=== PATIENT | female | born 1980 | race Caucasian/White ===

== ENCOUNTER 2018-02-13 21:09 | Emergency (ER) | payer OTHER ==
[2018-02-13 21:21] VITALS: BP 143/89
--- NOTE | 2018-02-13 21:28 | UC ---
Skin Complaint HPI - HPI Summary HPI Summary: This is mare Spencer documenting for attending Tanvir Guzman MD. This patient is a 37 year old F presenting to [facility] with a chief complaint of insect bite on the left sargent that occurred yesterday at a picnic. The patient rates the pain 4/10 in severity. Symptoms aggravated by nothing. Symptoms alleviated by nothing. Patient reports pruritic and painful bump on left sargent. - History of Current Complaint Chief Complaint: UCLowerExtremity Time Seen by Provider: 02/13/18 21:23 Stated Complaint: POSS BUG BITE ON LEG,INFLAMED Hx Obtained From: Patient Hx Last Menstrual Period: 02/04/18 ?: No Onset/Duration: Sudden Onset, Lasting Days, Still Present Skin Exposure Onset/Duration: Days Ago Timing: Constant Onset Severity: Moderate Current Severity: Moderate Pain Intensity: 4 Pain Scale Used: 0-10 Numeric Location: Other - Left leg Character: Pruritus, Painful Aggravating Factor(s): Nothing Alleviating Factor(s): Nothing Related History: Insect Bite/Sting - Allergy/Home Medications Allergies/Adverse Reactions: Allergies Allergy/AdvReac Type Severity Reaction Status Date / Time Sulfa (Sulfonamide Allergy Severe Anaphylatic Verified 02/13/18 21:22 Antibiotics) Shock Penicillins Allergy RASH, Verified 02/13/18 21:22 SWELLING Review of Systems Constitutional: Other - Negative fever Skin: Other - Positive insect bite on left leg and painful and pruritic rash All Other Systems Reviewed And Are Negative: Yes PMH/Surg Hx/FS Hx/Imm Hx Previously Healthy: Yes Endocrine History: Other Other Endocrine History: Negative diabetes Cardiovascular History: Other Other Cardiovascular History: Negative HTN - Surgical History Surgical History: Yes Surgery Procedure, Year, and Place: C-SECTIONS X2 - Family History Known Family History: Negative: Diabetes - Social History Occupation: Employed Full-time Lives: With Family Alcohol Use: Occasionally Substance Use Type: None Smoking Status (MU): Never Smoked Tobacco - Immunization History Most Recent Tetanus Shot: UNKNOWN Physical Exam - Summary Physical Exam Summary: VITAL SIGNS: Reviewed. GENERAL: Patient is a well-developed and nourished female who is lying comfortable in the stretcher. Patient is not in any acute respiratory distress. HEAD AND FACE: Normocephalic EYES: PERRLA, EOMI x 2. EARS: Hearing grossly intact. MOUTH: Oropharynx within normal limits. NECK: Supple, trachea is midline, no adenopathy, no JVD, no carotid bruit. CHEST: Symmetric, no tenderness at palpation LUNGS: Clear to auscultation bilaterally. No wheezing or crackles. CVS: Regular rate and rhythm, S1 and S2 present, no murmurs or gallops appreciated. ABDOMEN: Soft, non-tender. Bowel sounds are normal. No abdominal abnormal pulsations. EXTREMITIES: Full ROM in all major joints, no edema, no cyanosis or clubbing. NEURO: Alert and oriented x 3. No acute neurological deficits. Speech is normal and follows commands. SKIN: Dry and warm. Small spot about 2.5x2 cm which is tender with yellow discharge Triage Information Reviewed: Yes Vital Signs: Initial Vital Signs Temp 97.7 F 02/13/18 21: Pulse 59 02/13/18 21:18 Resp 16 02/13/18 21:18 BP 143/89 02/13/18 21: Pulse Ox 100 02/13/18 21:18 Vital Signs Reviewed: Yes Course/Dx - Course Course Of Treatment: Insect bite with cellulitis and yellow discharge. Culture send and given Clindamycin. She is discharged home with f/u of PCP. Take medications as instructed and adhere to plan. Take Acetaminophen or ibuprofen for pain or fever. Increase your fluid intake. Return to the or go to the emergency department if symptoms worsen. Follow-up with primary care physician in next 2-3 days - Diagnoses Provider Diagnoses: Cellulitis Discharge - Sign-Out/Discharge Documenting (check all that apply): Patient Departure - Discharge Plan Condition: Stable Disposition: HOME Prescriptions: Clindamycin Cap(NF) [Clindamycin Cap 300 mg Cap(NF)] 300 mg PO TID #30 cap Patient Education Materials: Cellulitis (ED) Referrals: Gianni Mariee MD [Primary Care Provider] - Additional Instructions: Take medications as instructed and adhere to plan Take Acetaminophen or ibuprofen for pain or fever Increase your fluid intake Return to the or go to the emergency department if symptoms worsen Follow-up with primary care physician in next 2-3 days - Billing Disposition and Condition Condition: STABLE Disposition: Home
[2018-02-13] MEDS ORDERED: Clindamycin CAP* 150 MG PO ONE (21:29)
[2018-02-13] MEDS ORDERED: Ibuprofen TAB* 400 MG PO ONE (21:29)
== END 2018-02-13 21:43 | disposition home or self-care (01) ==
LOC: UCEAST 21:09
DX: S80.862A Insect bite (nonvenomous), left lower leg, initial encounter (principal); L03.116 Cellulitis of left lower limb; W57.XXXA Bitten or stung by nonvenomous insect and other nonvenomous arthropods, initial encounter; Y93.89 Activity, other specified; Y92.9 Unspecified place or not applicable; Z88.0 Allergy status to penicillin; Z88.2 Allergy status to sulfonamides
CPT/HCPCS: 87070; 87205; 99212; A9270-GY; G0463

== ENCOUNTER → 2019-04-18 14:27 | Day surgery (SDC) | payer OTHER ==
--- NOTE | 2019-04-11 14:06 | HP ---
AMENDED REPORT NOW INCLUDES DESIGNATED COSIGNER - ESIGNED BEFORE ADJUSTMENTS CC: Dr. Gianni Mariee * PREOPERATIVE HISTORY AND PHYSICAL: DATE OF ADMISSION/SURGERY: 04/18/19 This patient is scheduled for same-day surgery admission by Dr. Blandon on 04/18/19. DATE OF PREOPERATIVE HISTORY AND PHYSICAL EXAMINATION: 04/11/19. ATTENDING SURGEON: Dr. Tay Blandon * (dictated by Alicia Lee NP). CHIEF COMPLAINT: Lump on the abdomen. HISTORY OF PRESENT ILLNESS: The patient is a 38-year-old female recently evaluated by Dr. Blandon for what she described as a hard lump on the upper abdomen for the past several months. It became more painful recently, especially if she was lifting or pushing; typically by the end of the day, she was taking ibuprofen with some relief. She denies any nausea or vomiting or change in bowel habits or straining at stool or fevers or chills. Dr. Blandon examined the patient and noted a slight bulge in the supraumbilical region to the right of the midline. Dr. Blandon advised obtaining an ultrasound of the abdomen and this revealed an anterior abdominal wall hernia with a defect approximately 1.1 cm, the hernia appeared to contain bowel. The hernia was in the palpable area of the right upper quadrant. Therefore, after discussing the findings with the patient, Dr. Blandon recommended laparoscopic ventral hernia repair with possible mesh as a same-day surgery procedure; he described the nature of the surgical procedure, the relevant risks and benefits and today, I reviewed the typical postoperative care and recovery. The patient has had a chance to ask questions and stated that she understands the information and is satisfied with the answers given to her questions. She will sign surgical consent on the day of surgery. PAST MEDICAL HISTORY: Generally healthy; seasonal asthma with no recent flare- ups. PAST SURGICAL HISTORY: section x2. OB HISTORY: 5, para 7. Last menstrual period 03/22/19. MEDICATIONS: None currently. ALLERGIES: PENICILLIN and SULFA ANTIBIOTICS both have caused swelling of her throat, face and hands associated with rash. FAMILY HISTORY: No known anesthesia complications, bleeding tendencies, or clotting disorders. SOCIAL HISTORY: She is and is a [id number] mom; she has 7 children, 2 sets of twins; she is a nonsmoker and occasionally drinks alcohol and denies the use of other substances. REVIEW OF SYSTEMS: Constitutional: No fevers, chills, excessive fatigue, or unintended weight loss. Endocrine: No diabetes or thyroid disease. Hematologic: No easy bruising or bleeding. Respiratory: No dyspnea on exertion. No chronic cough. Cardiovascular: No anginal chest pain or palpitations. Gastrointestinal: No nausea, vomiting, diarrhea, GI bleeding, constipation, or change in bowel habits. Genitourinary: Today, she describes suprapubic mild pressure and wonders if she has a urinary tract infection; she denies urgency, frequency, burning, or hematuria; she plans to call her primary care provider today and then she will update us as to whether she was diagnosed with a urinary tract infection and whether she was started on an antibiotic. Musculoskeletal: Normal strength and tone. Neurologic: No headache or blurred vision or areas of focal weakness or numbness. General: No previous anesthesia complications. No bleeding tendencies and she has never received a blood transfusion. No history of deep vein thrombosis or pulmonary embolism. PHYSICAL EXAMINATION GENERAL SURVEY: The patient is a 38-year-old female, well developed, obese, in no acute distress. VITAL SIGNS: Height 68.5 inches, weight 220 pounds, body mass index 33. Blood pressure 124/82, pulse 72 and regular, respiratory rate 16, temperature 99 tympanic. HEENT: Benign. NECK: Supple. No cervical lymphadenopathy. LUNGS: Breath sounds bilaterally clear and equal. HEART: Regular rate and rhythm. No murmurs or rubs appreciated. ABDOMEN: Obese; rectus diastasis noted when she does sit up; there is a bulge in the supraumbilical region to the right of the midline, no palpable hernia defect; the bulge is approximately 4 cm across and not reducible. The mass is mildly tender; no other masses are noted. No obvious organomegaly. Exam is limited by body habitus. PELVIC: Exam deferred. RECTAL: Exam deferred. EXTREMITIES: Warm without edema or skin ulceration. NEUROLOGIC: Alert and oriented x3. Steady gait. SKIN: Warm, dry, intact. IMPRESSION: Ventral hernia. PLAN: Same-day surgery admission to Dr. Blandon' service for laparoscopic ventral hernia repair with possible mesh on 04/18/19. TIME SPENT: 60 minutes with greater than 50% in [id number], physical examination, history taking, and coordination of care. PASCUAL LEE, MAIL CARRIER AND CLERK [id number]/[facility] #: [id number] [facility] CENTERLaw
[~2019-04-18 14:27] MED LIST: Albuterol HFA INHALER* 8 gm MDI INH PRN; Buffered Lidocaine 1% SYRIN* 1 ML/SYRINGE INTRADERM ONE; Bupivacaine 0.25% EPI 200,000* 30 ML SDV ONE; Clindamycin 900 MG/D5W BAG(*) 900 MG/50 ML BAG IVPB ONE; Dexamethasone IV* 4 MG/ML 1 ML (4 MG) IV SLOW PU ONE; Dexamethasone IV* 4 MG/ML 1 ML (4 MG) ONE; DiMENhydriNATE IV* 50 MG/ML VIAL IV PUSH PRN; Famotidine IV* 10 MG/ML 2 ML (20 mg) IV ONE; Famotidine IV* 10 MG/ML 2 ML (20 mg) ONE; Ibuprofen TAB* 200 MG PO PRN; Ketorolac INJ* 30 MG/ML 1 ML VIAL ONE; Lactated Ringers 1000 ML Bag* 1,000 ML IV SCH; Midazolam* 1 MG/ML 2 ML VIAL (2 MG) ONE; Naloxone* 0.4 MG/ML 1 ML VIAL IV PRN; Nitrofurantoin Macrocrystals* 100 MG CAP PO SCH; Ondansetron INJ* 2 MG/ML VIAL ONE; Propofol* 10 MG/ML 20 ML BTL ONE; Rocuronium* 10 MG/ML VIAL ONE; fentaNYL* 50 MCG/ML 2 ML VIAL (100 MCG VIAL) IV PRN; fentaNYL* 50 MCG/ML 2 ML VIAL (100 MCG VIAL) ONE; oxyCODONE/Acetamin 5/325 MG* TAB ONE; oxyCODONE/Acetamin 5/325 MG* TAB PO ONE
[2019-04-18 19:47] VITALS: BP 114/72
--- NOTE | 2019-04-19 10:22 | OP ---
CC: Gianni Mariee MD * DATE OF OPERATION: 04/18/19 - [facility] DATE OF : 76 SURGEON: Tay Blandon MD FIELD ACCOUNT DIRECTOR: Vandana Lee NP ANESTHESIOLOGIST: Dr. Wyatt. ANESTHESIA: General endotracheal. PRE-OP DIAGNOSIS: Ventral hernia. POST-OP DIAGNOSIS: Ventral hernia. OPERATIVE PROCEDURE: Laparoscopic repair of supraumbilical ventral hernia with mesh. ESTIMATED BLOOD LOSS: Less than 10 mL. IV FLUIDS: Crystalloids. SPECIMEN: None. DRAINS: None. COMPLICATIONS: None. COUNT: Instrument, needle, and sponge counts were correct. DESCRIPTION OF PROCEDURE: The patient was brought to the operating room and placed on the table supine. Sequential compression devices were placed on both lower extremities. General anesthesia was administered. Appropriate intravenous antibiotics were administered. She was prepped and draped in the usual sterile fashion and a time-out was performed. Local anesthetic was infiltrated into the skin and soft tissue prior to making each incision. Entry to the abdomen was through a left upper quadrant incision accommodating a 5 mm optical trocar. After accessing the peritoneal cavity, carbon dioxide was insufflated to a pressure of 15 mmHg. Under direct visualization, additional 5 mm trocars were placed in the left abdomen laterally and in the left lower quadrant. Inspection revealed supraumbilical hernia with incarcerated fat. This was reduced. The peritoneum was incised and the peritoneum dissected circumferentially around the area of the hernia defect. The hernia defect measured approximately 2 cm x 1 cm. A patch was fashioned from a piece of polypropylene as a 6 cm round. Suture of a 3-0 Prolene was placed through the center of this and then the mesh was introduced through the 5 mm port. Suture passer was then used to grasp the central suture joining the mesh up to the anterior abdominal wall and centering it over the defect. A CapSure tacker was used to secure the mesh using a double crown technique. Then, the peritoneum was closed over the mesh using a 3-0 monofilament absorbable barbed suture. This was achieved using 2 sutures to completely cover the mesh. Subsequently, the centering suture from the mesh was cut. The ports were removed under direct visualization and there was some bleeding noted from the left lower quadrant port site and therefore a 0 Vicryl was used with an Endo Close to oversew the muscle. Then, the remaining ports were removed under direct visualization and carbon dioxide was released. Skin incisions were closed with 4-0 Monocryl subcuticular fashion. Steri-Strips applied. The patient tolerated this procedure well, was extubated and transferred to Recovery in stable condition. [id number]/[facility] #: [id number] MTDD
== END | disposition home or self-care (01) ==
LOC: OR 14:27
PROVIDERS: ATTEND Surgery
DX: K43.9 Ventral hernia without obstruction or gangrene (principal); Z68.33 Body mass index [BMI] 33.0-33.9, adult; J45.909 Unspecified asthma, uncomplicated
CPT/HCPCS: 81025; A9270-GY; C1781; J1100; J1885; J2250; J2405; J2704; J3010